=== PATIENT | male | born 1990 | race Caucasian/White ===

== ENCOUNTER 2021-05-12 02:38 | Emergency (ER) | payer OTHER ==
[~2021-05-12] VITALS: Ht 175.3 cm; Wt 65.8 kg
--- NOTE | 2021-05-12 02:49 | NUR ---
pt ambulated to room 4a, c/o sore throat.
--- NOTE | 2021-05-12 03:04 | NUR ---
Dr. Braun at bedside for MSE.
[2021-05-12] MEDS ORDERED: OXYCODONE/APAP 5-325 MG TABLET PO ONE (03:15)
[2021-05-12] MEDS ORDERED: OXYCODONE/APAP 5-325 MG TABLET ONE (03:18)
[2021-05-12 03:22] LABS: HEMATOCRIT 38.4 % (36.7-47.1); MEAN CORPUSCULAR HEMOGLOBIN 28.2 uug (23.8-33.4); PLATELET COUNT (AUTO) 248 K/uL (152-348)
[2021-05-12] MEDS ORDERED: OXYC-128 PO (03:30)
[2021-05-12 03:31] LABS: ALANINE AMINOTRANSFERASE 75 U/L (16-63); ALKALINE PHOSPHATASE 128 U/L (50-136); ASPARTATE AMINOTRANSFERASE 29 U/L (15-37); BILIRUBIN,DIRECT < 0.1 mg/dL (0.0-0.2); BILIRUBIN,TOTAL 0.2 mg/dL (0.2-1.0); CARBON DIOXIDE 27 mmol/L (21-32); CHLORIDE 106 mmol/L (98-107); CREATININE 0.9 mg/dL (0.6-1.3); GLUCOSE 108 mg/dL (74-106); POTASSIUM 4.1 mmol/L (3.5-5.1); TOTAL PROTEIN, SERUM 7.3 g/dL (6.4-8.2); UREA NITROGEN, BLOOD 10 mg/dL (7-18)
[2021-05-12 04:03] LABS: *MONOTEST POSITIVE (NEGATIVE)
[2021-05-12 04:07] VITALS: BP 136/70
--- NOTE | 2021-05-12 04:07 | NUR ---
Patient discharged to home in stable condition. Written and verbal after care instructions given. Patient verbalizes understanding of instructions. Stressed follow up or return to ER for worsening s/s.
[2021-05-12 06:42] LABS: EOSINOPHILS % (MANUAL) 1 % (0-8); LYMPHOCYTES % (MANUAL) 60 % (20-40); MONOCYTES % (MANUAL) 6 % (2-10); NEUTROPHILS % (MANUAL) 27 % (42-75)
== END 2021-05-12 04:11 | disposition home or self-care (01) ==
LOC: ER 02:50
DX: J03.80 Acute tonsillitis due to other specified organisms (principal); B97.89 Other viral agents as the cause of diseases classified elsewhere; Z20.822 Contact with and (suspected) exposure to COVID-19; R74.01 Elevation of levels of liver transaminase levels; D72.820 Lymphocytosis (symptomatic)
CPT/HCPCS: 36415; 70030-TC; 85025; 86308; A4663